=== PATIENT | female | born 1965 | race Caucasian/White ===

== ENCOUNTER 2017-10-23 10:40 | Emergency (ER) | payer OTHER ==
[~2017-10-23] VITALS: Ht 167.6 cm; Wt 68.0 kg
[~2017-10-23 10:40] MED LIST: ACETAMINOPHEN-1 EAC1 PO; APRI1 EACH PO; CATALYST; CEFDINIR300 MG PO; FISH OIL 1,001000 M2 PO; FLEXERIL PO; IBUPROFEN 800800 M1 PO; MEDROXYPROGESTE10 MG PO; MULTI-VITAMIN1 EAC5 PO; NAPROSYN500 MG PO; NORCO 5-325 TA1 EACH PO; OMEPRAZOLE20 M2 PO; RANITIDINE 150150 M1 PO; ROBAXIN500 MG PO; SENNA PO; TORADOL 10 MG PO; ZOFRAN4 MG PO; [UNRECOGNIZED DRUG - OTHER] PO
[2017-10-23] MEDS ORDERED: BUTALB-APAP-CA1 EACH PO (13:22)
[2017-10-23 13:31] VITALS: BP 140/87
== END 2017-10-23 13:33 | disposition home or self-care (01) ==
LOC: M.ERS 10:40
DX: R51 Headache (principal); Z90.49 Acquired absence of other specified parts of digestive tract; Z90.710 Acquired absence of both cervix and uterus; Z88.0 Allergy status to penicillin

== ENCOUNTER 2019-07-30 13:35 | Emergency (ER) | payer OTHER ==
[~2019-07-30] VITALS: Ht 167.6 cm; Wt 65.8 kg
[~2019-07-30 13:35] MED LIST changes: +BUTALB-APAP-CA1 EACH PO
[2019-07-30] MEDS ORDERED: PROTONIX40 M2 PO (13:47)
[2019-07-30 14:34] LABS: ABSOLUTE EOSINOPHILS 0.2 thou/uL (0.0-0.7); ABSOLUTE MONOCYTES 0.3 thou/uL (0.0-1.2); ABSOLUTE NEUTROPHILS 3.5 thou/uL (1.6-8.1); BASOPHILS 0.6 %; EOSINOPHILS 2.6 %; HEMATOCRIT 40.3 % (37.0-47.0); HEMOGLOBIN 13.9 gm/dL (12.0-15.0); LYMPHOCYTES 32.9 %; MCH 30.5 pg (26.0-34.0); MCHC 34.4 g/dL (28.0-37.0); MCV 88.6 fL (80.0-100.0); MONOCYTES 4.9 %; MPV 7.7 fl. (7.2-11.1); NUCLEATED RBCS 0 /100WBC; PLATELET COUNT* 270 thou/uL (150-400); RBC 4.55 mil/uL (4.20-5.00); RDW-CV 13.1 % (10.5-14.5)
[2019-07-30 14:45] LABS: CALCIUM 9.8 mg/dL (8.5-10.1); CREATININE 0.9 mg/dL (0.6-1.3); POTASSIUM 3.9 mmol/L (3.5-5.1)
[2019-07-30 14:49] LABS: ALBUMIN 4.1 g/dL (3.4-5.0); TOTAL BILIRUBIN 0.6 mg/dL (<0.1-1.0); TOTAL PROTEIN 7.5 g/dL (6.4-8.2)
[2019-07-30] MEDS ORDERED: PEPCID20 MG PO (15:22)
[2019-07-30 16:38] VITALS: BP 133/80
--- NOTE | 2019-07-31 14:32 | EKG ---
[place] [address] ELECTROCARDIOGRAM REPORT Name: YOLY GANN Room: [facility]#: [id number] Admission: 07/30/19 Attend Phys: Discharge: 07/30/19 Date of : 65 Report #: [id number] THIS REPORT FOR: //name// [facility] ED Test Date: 2019-07-30 Test Time: 14:39:29 Pat Name: YOYL GANN Department: Room: Gender: F Instructional Consultant: RADHA : 1965 Requested By: Tyrese Duran Order Number: [id number] MD: Luis Fernando Taylor Measurements Intervals [place] Rate: 54 P: -12 HI: 134 QRS: 28 QRSD: 88 T: 37 QT: 456 QTc: 433 Interpretive Statements Sinus rhythm Compared to ECG 04/05/2016 10:46:16 T-wave abnormality no longer present Electronically Signed On 07-31-2019 14:32:31 NUTRITION PROFESSOR by Luis Fernando Taylor [email or web address] <ELECTRONICALLY SIGNED> By: Luis Fernando Taylor MD, [facility] 07/31/19 1432 [id number] Luis Fernando Taylor MD, FACC /EPI
== END 2019-07-30 16:39 | disposition home or self-care (01) ==
LOC: M.ERS 13:35
PROVIDERS: Physician Assistant
DX: R10.13 Epigastric pain (principal); R07.9 Chest pain, unspecified; Z90.49 Acquired absence of other specified parts of digestive tract; Z90.710 Acquired absence of both cervix and uterus; Z88.0 Allergy status to penicillin